=== PATIENT | male | born 1985 | race Two or more races ===

== ENCOUNTER → 2025-03-17 | Emergency (ER) | payer OTHER ==
[~2025-03-17] VITALS: Ht 172.7 cm; Wt 78.0 kg
[~2025-03-17] MED LIST: DEXAMETHASONE SODIUM PHOSP/PF 10 MG/ML VIAL IV ONE
== END | disposition home or self-care (01) ==
LOC: ER 14:51
DX: M25.531 Pain in right wrist (principal); M77.8 Other enthesopathies, not elsewhere classified; Z88.6 Allergy status to analgesic agent; Z88.8 Allergy status to other drugs, medicaments and biological substances
CPT/HCPCS: 73100; 96365; 99283; J1100